=== PATIENT | male | born 1980 | race Caucasian/White ===

== ENCOUNTER 2017-05-31 09:48 | Emergency (ER) | payer MEDICAID ==
[2017-05-31] MEDS: ACETAMINOPHEN 325 MG TAB PO (12:21)
[2017-05-31] MEDS: ONDANSETRON (ODT) 4 MG TAB ODT (12:21)
[2017-05-31] MEDS: MECLIZINE 12.5 MG TAB PO (12:21)
== END 2017-05-31 13:20 | disposition home or self-care (01) ==
LOC: FTE 09:48
DX: R42 Dizziness and giddiness (principal)
CPT/HCPCS: 99284; Z7610